=== PATIENT | female | born 1990 | race Caucasian/White ===

== ENCOUNTER 2017-11-13 06:51 | Inpatient (IN) | payer OTHER, SELFPAY ==
[2017-11-13] MEDS: NIFEdipine 10 MG CAPSULE PO ×4 (07:53→09:17)
[2017-11-13] MEDS: MAGNESIUM SULFATE 4 GM/100 ML PIGGYBACK IV (10:38)
--- NOTE | 2017-11-13 10:40 | P.HPOB_ITS ---
OB HPI History of Present Illness Chief complaint: EVALUATION OF LABOR Narrative: Moraima Heredia is a 26 year old female who presents at 34 2/ 7 weeks gestation, having regular PAINFUL contractions. At the time of presentation at 7 o'clock, patient had been dion every 2-3 minutes, her cervix was closed. She was intact at that time. The nifedipine protocol was started. Unfortunately, patient's contractions did not melissa, and patients cervix was rechecked in she had dilated to a ample 1 cm. was otherwise remarkable for a blood type of BA positive, antibody negative, rubella immune, negative glucose tolerance test , a hepatitis-C negative, HIV negative, HSV I positive, HSV 2 negative. Normal quad screen. The early first ultrasound done at 8 weeks in the office. otherwise unremarkable Evaluation Evaluation Variability: Moderate (11-25) monitor accelerations: Present monitor decelerations: Absent Contraction Frequency (minutes): 3 Uterine Contraction Intensity: Strong/Firm Category of Tracing: II station: -2 PFSH Surgical History H/O section (Resolved) Meds Home Medications Medication Instructions Recorded Confirmed Type ondansetron HCl [Zofran] 4 mg PO Q6HP PRN #30 tab 06/17/17 Rx breast pump #1 each 10/14/17 Rx Review of Systems Review of Systems All systems reviewed & are unremarkable except as noted in HPI and below Exam Vital Signs (past 8 hours): GENERAL: Well-developed well-nourished woman who appears uncomfortable HEENT: Normocephalic, atraumatic, pupils equal and reactive to light and accommodation. Extraocular movements are intact. Tympanic membranes are clear without erythema. Neck supple, no lymphadenopathy. LUNG: Clear to auscultation bilaterally. No wheeze or crackles or rhonchi. No increased work in breathing. CV: Regular rate and rhythm. No murmurs rubs or gallops. ABDOMEN: SOFT NONTENDER, NO MASS PALPABLE CONTRACTIONS AFFECT: Alert and oriented X3. Conversational and appropriate. Assessment and Plan Plan: Plan: 1. Appears patient is in labor based on cervical change. I did contact the [facility] for transfer with anticipated Caesarean section. Patient was started on magnesium, given betamethasone IV, and started on clindamycin due to penicillin allergy for GBS prophylaxis. [facility] is accepted patient in transfer. 2. Laboratories were ordered. This serves as both the history and physical and discharge summary.
[2017-11-13] MEDS: BETAMETHASONE 30 MG/5 ML MDV 12 MG IM (11:05)
[2017-11-13] MEDS: MAGNESIUM SULFATE 20 GM/500 ML IV.SOLN IV (11:10)
[2017-11-13] MEDS: CLINDAMYCIN 900 MG/50 ML PIGGYBACK 50 MG IV (11:25)
[2017-11-13 11:30] VITALS: BP 107/95; PULSE 95; RESP 16; TEMP 36.1
[2017-11-13 21:24] LABS: Appearance Urine UA CLEAR; Bilirubin Urine UA NEGATIVE (NEGATIVE); Color Urine UA YELLOW; Glucose Urine UA NEGATIVE (Normal); Ketones Urine UA NEGATIVE (NEGATIVE); Leukocyte Esterase Urine UA NEGATIVE (NEGATIVE); Nitrite Urine UA Negative (Negative); Occult Blood Urine UA NEGATIVE (Negative); Protein Urine UA NEGATIVE (Negative); Urobilinogen Urine UA 0.2 E.U./dL (0.2); pH Urine UA 7.5 (4.5-8.0)
== END 2017-11-13 11:30 | disposition short-term general hospital (02) | DRG 778 ==
PROVIDERS: Specialist; Admitting Provider Family Medicine; PCP Family Medicine; Visit Provider Family Medicine
DX: O60.03 Preterm labor without delivery, third trimester (principal); Z3A.34 34 weeks gestation of pregnancy; O34.219 Maternal care for unspecified type scar from previous cesarean delivery
CPT/HCPCS: 81003; 87086; G0378; G0379; J0702; J3475

== ENCOUNTER 2017-11-16 09:47 | Outpatient (CLI) | payer OTHER, SELFPAY | END 2017-11-16 10:40 | disposition home or self-care (01) | LOC: OB 11-17 10:09 | PROVIDERS: PCP Family Medicine; Visit Provider Family Medicine | DX: O36.8130 Decreased fetal movements, third trimester, not applicable or unspecified (principal); Z3A.35 35 weeks gestation of pregnancy | CPT/HCPCS: 59025; G0378; G0379 ==

== ENCOUNTER 2017-11-17 10:17 | Observation (INO) | payer OTHER, SELFPAY ==
[2017-11-17] MEDS: NIFEdipine 10 MG CAPSULE PO ×4 (11:15→12:11)
== END 2017-11-17 12:37 | disposition home or self-care (01) ==
PROVIDERS: Admitting Provider Family Medicine; PCP Family Medicine; Visit Provider Family Medicine
DX: O60.03 Preterm labor without delivery, third trimester (principal); Z3A.34 34 weeks gestation of pregnancy
CPT/HCPCS: 59025; 59050; G0378; G0379

== ENCOUNTER → 2017-11-28 10:45 | Outpatient (CLI) | payer OTHER, SELFPAY ==
[2017-11-29 10:01] LABS: Strep Grp B PCR NEG for Grp B Strep
== END ==
PROVIDERS: PCP Family Medicine; Visit Provider Family Medicine
DX: Z36.9 Encounter for antenatal screening, unspecified (principal); Z3A.36 36 weeks gestation of pregnancy
CPT/HCPCS: 87653

== ENCOUNTER 2017-12-13 08:08 | Inpatient (IN) | payer OTHER, SELFPAY ==
[2017-12-13] MEDS: NIFEdipine 30 MG TAB ER PO (09:03)
[2017-12-13] MEDS: NIFEdipine 10 MG CAPSULE PO (09:05)
[2017-12-13] MEDS: OXYCODONE/ACETAMINOPHEN 5/325 TABLET 2 TAB PO ×2 (11:20→19:32)
--- NOTE | 2017-12-13 12:27 | PM.OBHP.1 ---
OB HPI History of Present Illness Chief complaint: observation of labor Narrative: Moraima Heredia is a 27 year old female who presented at 38 and 4/7 weeks gestation with regular painful contractions, with history of previous section. Attempt was made to decrease contractions without success, and it was determined the best course of action would be to proceed with section. Patient had contractions starting at 34 weeks, and was maintained on nifedipine until the present. Maternal blood type A positive, antibody negative, serology nonreactive, hepatitis B negative, HIV negative, gonorrhea and Chlamydia negative, HSV 1 positive, group B strep negative. [facility] Surgical History H/O section (Resolved) Comment: Patient is , 1 previous child. No history of tobacco, marijuana, or alcohol use during . Meds Home Medications Medication Instructions Recorded Confirmed Type ondansetron HCl [Zofran] 4 mg PO Q6HP PRN #30 tab 06/17/17 Rx breast pump #1 each 10/14/17 Rx nifedipine ER 30 mg 30 mg PO BID #60 tab 11/17/17 Rx tablet,extended release nifedipine 10 mg capsule 10 mg PO TID PRN #30 cap 11/20/17 Rx Review of Systems Review of Systems All systems reviewed & are unremarkable except as noted in HPI and below Exam Vital Signs (past 8 hours): GENERAL: Well-developed well-nourished woman who appears very uncomfortable HEENT: Normocephalic, atraumatic, pupils equal and reactive to light and accommodation. Extraocular movements are intact. LUNG: Clear to auscultation bilaterally. No wheeze or crackles or rhonchi. No increased work in breathing. CV: Regular rate and rhythm. No murmurs rubs or gallops. ABDOMEN: SOFT, APPROPRIATELY TENDER, AFFECT: Alert and oriented X3. Conversational and appropriate. STERILE VAGINAL EXAM: 1/50%/-2 heart rate: Category 2 Contractions: Q 2-5 minutes Assessment and Plan Plan: Plan: Term with history of previous section. Will proceed with section at this time.
--- NOTE | 2017-12-13 12:33 | P.HPOB_ITS ---
OB HPI History of Present Illness Chief complaint: observation of labor Narrative: Moraima Heredia is a 27 year old female who presented at 38 and 4/ 7 weeks gestation with regular painful contractions, with history of previous section. Attempt was made to decrease contractions without success, and it was determined the best course of action would be to proceed with section. Patient had contractions starting at 34 weeks, and was maintained on nifedipine until the present. Maternal blood type A positive, antibody negative, serology nonreactive, hepatitis B negative, HIV negative, gonorrhea and Chlamydia negative, HSV 1 positive, group B strep negative. [facility] Surgical History H/O section (Resolved) Comment: Patient is , 1 previous child. No history of tobacco, marijuana , or alcohol use during . Meds Home Medications Medication Instructions Recorded Confirmed Type ondansetron HCl [Zofran] 4 mg PO Q6HP PRN #30 tab 06/17/17 Rx breast pump #1 each 10/14/17 Rx nifedipine ER 30 mg 30 mg PO BID #60 tab 11/17/17 Rx tablet,extended release nifedipine 10 mg capsule 10 mg PO TID PRN #30 cap 11/20/17 Rx Review of Systems Review of Systems All systems reviewed & are unremarkable except as noted in HPI and below Exam Vital Signs (past 8 hours): GENERAL: Well-developed well-nourished woman who appears very uncomfortable HEENT: Normocephalic, atraumatic, pupils equal and reactive to light and accommodation. Extraocular movements are intact. LUNG: Clear to auscultation bilaterally. No wheeze or crackles or rhonchi. No increased work in breathing. CV: Regular rate and rhythm. No murmurs rubs or gallops. ABDOMEN: SOFT, APPROPRIATELY TENDER, AFFECT: Alert and oriented X3. Conversational and appropriate. STERILE VAGINAL EXAM: 1/50%/-2 heart rate: Category 2 Contractions: Q 2-5 minutes Assessment and Plan Plan: Plan: Term with history of previous section. Will proceed with section at this time.
--- NOTE | 2017-12-13 12:33 | PM.OP.1 ---
Operative Date/Time/Diagnoses - Date of procedure: 12/13/17 Time of procedure: 13:00 Pre-op diagnosis: Term intrauterine /repeat section Post-op diagnosis: same Procedure & Clinicians Procedure: Repeat lower transverse section Same procedure as scheduled: Yes Indications: Repeat lower transverse section Anesthesia Type: Spinal Operative Notes Closure Type: primary Specimen(s): none sent Implants & Drains: Conrad catheter Procedure in detail: Patient was placed in the dorsal supine position up on the operating table and anesthetized, draped and prepped in the usual fashion. Spinal anesthesia. Once adequate anesthesia, incision site was marked. Incision was made and the subcutaneous tissue and incised to the fascia. Fascia was incised with a sharp knife transversely in each direction widened by blunt finger dissection. Pyramidalis muscles were incised in the midline and divided by blunt finger dissection. The peritoneum was picked up and incised and widened by blunt finger dissection. The peritoneum over the lower uterine segment was incised. There was minnimal fasicia however, bladder was then taken down and the bladder blade replaced. A transverse scoring incision was made across the lower uterine segment. Perforating incision was made centrally and this was widened upon finger dissection. Live was then delivered, cord was clamped and cut, and handed over to nursing. Attention was then turned to the uterus. Bladder blade was reinserted and uterus was grasped with Allis clamps x4. Uterus was closed in a 2 layer fashion with 0 Vicryl. No bleeding was observed. Omentum was then set back in place the parietal peritoneum grasped and closed in a running 2 0 chromic suture. Taking 1-0 Vicryl suture, and the fascia was closed with 2 continuous Vicryl sutures. Subcutaneous tissue was copiously irrigated and closed in 2 layers, 1st with interrupted 0-3 of suture and then with a running horizontal mattress for 0 Vicryl. Wound was further approximated with Steri-Strips. At the end of the procedure the patient tolerated the procedure well, the urine was clear and patient was taken to the recovery room in satisfactory condition. EBL 500 ml Fluids 1200 ml crystalloid Complications: none Condition: stable
[2017-12-13 12:36] LABS: Add Manual Diff / Slide Review NO; Basophils Percent Auto 0.6 % (0-2); Eosinophils Percent Auto 1.1 % (2-4); Hematocrit 34.2 % (36-46); Hemoglobin 11.9 g/dL (12.0-16.0); Lymphocytes Percent Auto 19.9 % (25-40); Mean Corpuscular HGB Conc 34.7 % (30-36); Mean Corpuscular Volume 86.5 fL (80-100); Monocytes Percent Auto 6.5 % (3-14); Neutrophils Absolute Auto 9800 /uL (3000-5900); Neutrophils Percent Auto 71.9 % (50-75); Platelet Count 206 X10^3/uL (150-400); Red Blood Cell Count 3.96 X10^6/uL (4.0-5.2); Red Cell Distribution Width 13.5 % (11.6-14.8); White Blood Cell Count 13.7 X10^3/uL (4.5-11.0)
[2017-12-13 15:45] LABS: Hematocrit 30.9 % (36-46); Hemoglobin 10.5 g/dL (12.0-16.0)
[2017-12-13] MEDS: DEXTROSE 5%-LACTATED RINGERS 1,000 ML 100 ML IV ×2 (16:21→22:49)
[2017-12-13 18:59] VITALS: BP 105/66; PULSE 77; RESP 16; TEMP 36.6; O2SAT 97
[2017-12-13 19:32] VITALS: TEMP 36.6
[2017-12-13] MEDS: ONDANSETRON 4 MG/2 ML INJ IV (19:33)
[2017-12-13 20:38] VITALS: TEMP 36.4
[2017-12-13] MEDS: KETOROLAC 30 MG/ML VIAL IV (20:38)
[2017-12-14 00:28] VITALS: TEMP 36.4
[2017-12-14] MEDS: OXYCODONE/ACETAMINOPHEN 5/325 TABLET 2 TAB PO ×6 (00:28→23:32)
[2017-12-14] MEDS: KETOROLAC 30 MG/ML VIAL IV ×2 (02:43→09:25)
[2017-12-14 05:15] VITALS: TEMP 36.4
[2017-12-14] MEDS: DOCUSATE 250 MG CAPSULE PO (09:24)
[2017-12-14] MEDS: PRENATAL VIT,CALC/IRON/FOLIC 1 TABLET 1 TAB PO (09:24)
--- NOTE | 2017-12-14 10:50 | P.PNOB_ITS ---
Subjective - OB Interval history: Postoperative day 1. Status post repeat lower transverse section. Patient does seem to be doing well. Hemoglobin was 10.5. Laboratory was ordered later in the afternoon. Mother reports that she does have some nipple pain bilaterally with feeding, and we will continue to work with her at this point. Patient has ambulated. The catheter is removed.. Pain well managed. Lochia appropriate, patient describes as heavy menses. Exam Vital Signs (past 8 hours): GENERAL: Well-developed well-nourished woman in no acute distress. HEENT: Normocephalic, atraumatic, pupils equal and reactive to light and accommodation. Extraocular movements are intact. LUNG: Clear to auscultation bilaterally. No wheeze or crackles or rhonchi. No increased work in breathing. CV: Regular rate and rhythm. No murmurs rubs or gallops. ABDOMEN: SOFT appropriately tender. Wound is clean dry and intact. Dressing remains in place. AFFECT: Alert and oriented X3. Conversational and appropriate. - 12/14/17 05:15 Temperature 97.5 F L Oxygen Delivery Method Room Air Objective Labs Result Diagrams: 12/13/17 15:05 Labs: Laboratory Results - last 24 hr 12/13/17 12/13/17 12/13/17 12:05 12:05 15:05 WBC 13.7 H RBC 3.96 L Hgb 11.9 L 10.5 L Hct 34.2 L 30.9 L MCV 86.5 MCH 30.0 MCHC 34.7 RDW 13.5 Plt Count 206 Neut % (Auto) 71.9 Lymph % (Auto) 19.9 L [place] % (Auto) 6.5 Eos % (Auto) 1.1 L Baso % (Auto) 0.6 Neut # (Auto) 9800 H Blood Type A Positive Antibody Screen Negative Assessment & Plan Time Spent With Patient day 1., patient seems to be doing well. Will continue to work with breast feeding. IV out when patient voids again. Continue pain management routine care. Total time spent is greater than 50% in coordination of care (as documented) at patient's floor/unit and/or counseling patient: less than 15 minutes
[2017-12-14] MEDS: IBUPROFEN 600 MG TABLET PO ×2 (17:17→23:33)
[2017-12-14 23:32] VITALS: TEMP 36.5
[2017-12-15 03:57] VITALS: TEMP 36.4
[2017-12-15] MEDS: OXYCODONE/ACETAMINOPHEN 5/325 TABLET 2 TAB PO ×3 (03:57→12:07)
[2017-12-15] MEDS: IBUPROFEN 600 MG TABLET PO (07:37)
[2017-12-15] MEDS: DOCUSATE 250 MG CAPSULE PO (07:38)
[2017-12-15] MEDS: PRENATAL VIT,CALC/IRON/FOLIC 1 TABLET 1 TAB PO (07:38)
[2017-12-15 09:50] VITALS: BP 117/72; PULSE 82; RESP 14; TEMP 36.4
--- NOTE | 2017-12-15 17:44 | P.DS_ITS ---
Discharge Providers Date of admission: 12/13/17 08:08 Primary care physician: Tammie Silver MD Consults: 12/13/17 14:38 Consult to Rehabilitation Services Counselor Routine Comment: Discharge provider: Tammie Silver MD Summary Discharge Diagnosis (1) H/O section: Status: Resolved Problem Details: Patient is a 27-year-old who came in for repeat section with regular painful contractions. Patient subsequently delivered a healthy term female weighing 6 lb and 14 oz. Postoperatively the patient did well. Minimal lochia. She did have her Conrad catheter removed and was ambulating on hospital day 2. Patient did have some difficulty with breast feeding and will have close follow-up. Vital signs remained stable. Patient was felt safe to discharge to home. Will follow up in 1 week. Time Spent with Patient Total time spent providing and/or coordinating discharge services: Objective Labs Result Diagrams: 12/13/17 15:05 Discharge Plan Discharge Plan Patient Disposition: Home, Self-Care Discharge Med Rec/Prescriptions Prescriptions: New oxycodone-acetaminophen 5-325 mg Tablet 2 tab PO Q4HR PRN (Reason: Pain, Severe (7-10)) Qty: 30 RF: 0 ibuprofen 600 mg Tablet 600 mg PO Q6HR PRN (Reason: As Needed For Fever/Mild Pain) Qty: 30 RF: 0 docusate sodium 250 mg Capsule 250 mg PO DAILY Qty: 30 RF: 0 [id number] [Prenatabs Rx] 29 mg iron- 1 mg Tablet 1 tab PO DAILY Qty: 30 RF: 0 Continue breast pump device .ROUTE .MEDSUPPLY Qty: 1 RF: 0 Follow up/Referrals: Tammie Silver MD [Primary Care Provider] - 1 Week (December 16, [place], a the Clinic 2pm December 22, Friday, with Dr Silver at 3pm) Wound Care Dressing: Do not remove dressing Visit Report/Discharge Packet Instructions: DI for Visit Report Forms: Stroke Signs & Symptoms Discharge Data Primary Care Provider: Tammie Silver Attending Provider: Oswald Horn Admit Date/Time: 12/13/17 08:08 Discharges patient from system. Discharge Date/Time: 12/15/17 14:00
== END 2017-12-15 14:00 | disposition home or self-care (01) | DRG 766 ==
PROVIDERS: PCP Family Medicine
DX: O75.82 Onset (spontaneous) of labor after 37 completed weeks of gestation but before 39 completed weeks gestation, with delivery by (planned) cesarean section (principal); O34.219 Maternal care for unspecified type scar from previous cesarean delivery; Z3A.38 38 weeks gestation of pregnancy; Z37.0 Single live birth
CPT/HCPCS: 36415; 59050; 59510; 85014; 85018; 85025; 86850; 86900; 86901; G0379; J0690; J1885; J2250; J2274; J2405; J2590; J3010; J7121

== ENCOUNTER → 2017-12-26 15:04 | Outpatient (CLI) | payer OTHER, SELFPAY | PROVIDERS: PCP Family Medicine; Visit Provider Family Medicine | DX: R30.0 Dysuria (principal); T81.4XXA Infection following a procedure, initial encounter | CPT/HCPCS: 87070; 87075; 87077; 87086; 87147; 87186; 87205 ==

== ENCOUNTER 2018-01-17 11:54 | Emergency (ER) | payer OTHER, SELFPAY ==
[2018-01-17 12:01] VITALS: BP 98/65; PULSE 75; RESP 14; TEMP 36.3; O2SAT 99; BMI 26.9
--- NOTE | 2018-01-17 12:27 | DI.US.S_ITS ---
PROCEDURE: US ABDOMEN COMPLETE INDICATIONS: PAIN TECHNIQUE: Real-time scanning was performed of the abdominal and retroperitoneal organs, with image documentation. COMPARISON: None. FINDINGS: Liver: Liver is normal in size and homogeneous in echotexture. Gallbladder: There are numerous small mobile gallstones. No gallbladder wall thickening or pericholecystic fluid. The sonographic Doss's sign was positive. Biliary ducts: Intrahepatic bile ducts are non-dilated. Extrahepatic bile duct caliber measures 8.2 mm. Normal is 6-7 mm or less in diameter, or 10 mm or less post-cholecystectomy. Pancreas: Visualized portions of the pancreas are sonographically normal. Spleen: Spleen is normal in size and homogeneous in echotexture. Kidneys: Kidneys are normal in size. Right kidney measures 13.1 cm long; left kidney measures 12.5 cm long. Kidneys demonstrate echogenic medulla bilaterally. No hydronephrosis or nephrolithiasis. No solid masses. Two smal simple cysts are noted in the right kidney measuring 1.0 and 1.1 cm. Aorta: Visualized aorta is normal in caliber at less than 3 cm. Iliacs: Proximal common iliac arteries are normal in caliber at less than 2.5 cm. IVC: Intrahepatic inferior vena cava is patent. Miscellaneous: No free abdominal fluid. IMPRESSION: 1. Cholelithiasis. There is a positive sonographic Doss sign but no gallbladder wall thickening or pericholecystic fluid collection. Recommend clinical correlation for early acute cholecystitis. 2. The common bile duct is dilated measuring 8.2 mm. Please correlate with serum bilirubin. 3. 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 No hydronephrosis. 4. Two small simple cysts in the right kidney. Dictated by: Hariret Dos Santos M.D. on 01/17/2018 at 14:21 Approved by: Harriet Dos Santos M.D. on 01/17/2018 at 14:26
--- NOTE | 2018-01-17 12:30 | ED.ABDPAIN ---
HPI - Abdominal Pain <VALERIA Delgado - Last Filed: 01/17/18 23:05> General Chief Complaint: Abdominal Pain Stated Complaint: PRESSURE UNDER BREASTBONE Time Seen by Provider: 01/17/18 12:14 Source: patient Mode of arrival: ambulatory Limitations: no limitations History of Present Illness HPI narrative: 27-year-old female here for complaint of pain to bilateral upper abdomen that started early this morning. She denies any trauma to the area. She denies any strenuous activity. She was seen at [facility] ER this morning and had CT and labs completed and was negative. They instructed her to follow up with her primary care provider. She returns to the ER because she has continued pain. She also reports having a couple episodes of vomiting. She has had 3 bowel movements today she states was soft however is not diarrhea she denies any fevers or chills. She denies any urinary symptoms. The pain wraps to back. She denies any stressors or relievers of the pain. MD complaint: abdominal pain Related Data Previous Rx's Medication Instructions Recorded hydrocodone-acetaminophen [Dumont] 1 tab PO Q4-6H PRN #15 tab 01/17/18 ondansetron 4 mg PO Q6-8H PRN #10 tab 01/17/18 Allergies Allergy/AdvReac Type Severity Reaction Status Date / Time amoxicillin Allergy Severe Rash Verified 01/17/18 12:15 Review of Systems <VALERIA Delgado - Last Filed: 01/17/18 23:05> Constitutional Denies chills, Denies fever(s), Denies lethargy and Denies weakness Eyes Denies change in vision, Denies eye discharge, Denies irritation and Denies loss of vision ENT Ears, Nose, Mouth, and Throat: Denies change in voice, Denies neck pain and Denies sore throat Cardiovascular Denies chest pain, Denies irregular heart rhythm, Denies lightheadedness, Denies palpitations, Denies dyspnea, Denies dyspnea on exertion and Denies orthopnea Respiratory Denies cough, Denies dyspnea, Denies dyspnea on exertion and Denies wheezing Gastrointestinal Gastrointestinal: Reports abdominal pain and Reports vomiting Genitourinary Denies hematuria, Denies flank pain, Denies urinary incontinence and Denies urinary urgency Musculoskeletal Denies neck pain Integumentary/Breasts Denies pruritus, Denies erythema, Denies rash and Denies wounds Neurologic Denies confusion, Denies loss of vision and Denies weakness Psychiatric Denies anxiety, Denies confusion, Denies depression, Denies homicidal ideation and Denies suicidal ideation Endocrine Denies palpitations Hematologic/Lymphatic Denies easy bruising Allergic/Immunologic Denies wheezing Exam <VALERIA Delgado - Last Filed: 01/17/18 23:05> Initial Vital Signs Initial Vital Signs: Vital Signs Temperature 97.4 F L 01/17/18 12:01 Pulse Rate 75 01/17/18 12:01 Respiratory Rate 14 01/17/18 12:01 Blood Pressure 98/65 01/17/18 12:01 Pulse Oximetry 99 01/17/18 12:01 Const General: cooperative and well developed Nutritional Appearance: well nourished Orientation: alert, awake, oriented x3 and not confused HENMT Mouth: oral mucosae normal and moist mucous membranes Eyes Conjunctivae: conjunctivae normal Sclera: sclerae normal Pupils: PERRL EOM: EOM intact bilaterally Resp Effort & Inspection: normal respiratory effort, able to speak in complete sentences, no respiratory distress and no use of accessory muscles Auscultation: clear to auscultation bilaterally, no rales, no rhonchi and no wheezes Cardio Rate: regular rate Rhythm: regular rhythm Heart Sounds: no click, no gallops, no murmurs and no rubs GI Inspection: non-distended Palpation: soft, no hepatosplenomegaly, No guarding, No hepatomegaly, No hernia, No mass, No pulsatile mass, No splenomegaly and tender (Tenderness on palpation to bilateral upper abdomen) Auscultation: normal bowel sounds General: No CVA tenderness Skin General: no rashes or lesions noted, No jaundice and No petechiae Neuro General: alert, oriented x3, gait normal and no focal motor deficits Speech: speech normal <Chucky Padgett MD - Last Filed: 01/19/18 08:48> Initial Vital Signs Initial Vital Signs: Vital Signs Temperature 97.4 F L 01/17/18 12:01 Pulse Rate 75 01/17/18 12:01 Respiratory Rate 14 01/17/18 12:01 Blood Pressure 98/65 01/17/18 12:01 Pulse Oximetry 99 01/17/18 12:01 Course <VALERIA Delgado - Last Filed: 01/17/18 23:05> Orders Ordered: ED Orders 01/17/18 12:27 US abdomen complete Stat Vital Signs - 8 hr 01/17/18 12:01 Temperature 97.4 F L Pulse Rate 75 Respiratory Rate 14 Blood Pressure 98/65 Pulse Oximetry 99 <Chucky Padgett MD - Last Filed: 01/19/18 08:48> Orders Ordered: ED Orders 01/17/18 12:27 US abdomen complete Stat Vital Signs - 8 hr 01/17/18 12:01 Temperature 97.4 F L Pulse Rate 75 Respiratory Rate 14 Blood Pressure 98/65 Pulse Oximetry 99 MDM - Abdominal Pain <VALERIA Delgado - Last Filed: 01/17/18 23:05> Imaging Data US - abdomen: Radiologist's impression: Patient: Moraima Heredia MR#: [id number] : 1990 Acct:[id number] Age/Sex: 27 / F Date of Service: 01/17/18 Loc: ED Accession Number: [id number] Procedure: US abdomen complete Ordering Provider: Yamil Galeana PROCEDURE: US ABDOMEN COMPLETE INDICATIONS: PAIN TECHNIQUE: Real-time scanning was performed of the abdominal and retroperitoneal organs, with image documentation. COMPARISON: None. FINDINGS: Liver: Liver is normal in size and homogeneous in echotexture. Gallbladder: There are numerous small mobile gallstones. No gallbladder wall thickening or pericholecystic fluid. The sonographic Doss's sign was positive. Biliary ducts: Intrahepatic bile ducts are non-dilated. Extrahepatic bile duct caliber measures 8.2 mm. Normal is 6-7 mm or less in diameter, or 10 mm or less post-cholecystectomy. Pancreas: Visualized portions of the pancreas are sonographically normal. Spleen: Spleen is normal in size and homogeneous in echotexture. Kidneys: Kidneys are normal in size. Right kidney measures 13.1 cm long; left kidney measures 12.5 cm long. Kidneys demonstrate echogenic medulla bilaterally. No hydronephrosis or nephrolithiasis. No solid masses. Two smal simple cysts are noted in the right kidney measuring 1.0 and 1.1 cm. Aorta: Visualized aorta is normal in caliber at less than 3 cm. Iliacs: Proximal common iliac arteries are normal in caliber at less than 2.5 cm. IVC: Intrahepatic inferior vena cava is patent. Miscellaneous: No free abdominal fluid. IMPRESSION: 1. Cholelithiasis. There is a positive sonographic Doss sign but no gallbladder wall thickening or pericholecystic fluid collection. Recommend clinical correlation for early acute cholecystitis. 2. The common bile duct is dilated measuring 8.2 mm. Please correlate with serum bilirubin. 3. 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 No hydronephrosis. 4. Two small simple cysts in the right kidney. Dictated by: Harriet Dos Santos M.D. on 01/17/2018 at 14:21 Approved by: Harriet Dos Santos M.D. on 01/17/2018 at 14:26 MDM Narrative Medical decision making narrative: Laboratory results and CT from [facility] were obtained and were unremarkable. Obtained abdominal ultrasound here at which shows cholelithiasis but not any signs of cholecystitis. Common bile duct was 8.2 mm with positive echogenic Doss sign. Sinus symptoms possible starting cholecystitis. Differential of abdominal wall pain. Discussed case with Dr. Sky phipps whose office will follow up with patient in the next few days. Patient to call the office Friday morning to schedule follow-up appointment. She is treated with Dumont for breakthrough pain not covered by Tylenol. She is also treated with Dumont for any nausea. She is instructed to limit fatty food intake to see if it helps her symptoms. For any worsening symptoms return to the emergency room. Discharge Plan Departure Patient Disposition: Home, Self-Care Clinical Impression: Abdominal pain Discharge Date/Time: 01/17/18 15:29 Interventions: ED Discharge Assessment Last Done: 01/17/18 15:28 Instructions: DI for Abdominal Pain-Adult Activity Restrictions/Additional Instructions: Received laboratory results and CT results from [facility] and they were unremarkable. Ultrasound of the abdomen shows that you do have gallbladder stones however no specific signs of gallbladder attack at this time. It is possible that you bite be in early stages have having cholecystitis. Discussed case with surgery who will follow up with you in the next few days call the office Friday morning to schedule follow-up appointment. Dumont is provided for pain and not covered by Tylenol use as directed no driving while on the Dumont. Zofran is prescribed for nausea use as directed. Limit fatty food intake to see if it helps symptoms. For any worsening symptoms return to the emergency room. Prescriptions: New hydrocodone-acetaminophen [Dumont] 5-325 mg tablet 1 tab PO Q4-6H PRN (Reason: pain) Qty: 15 RF: 0 ondansetron 4 mg tablet,disintegrating 4 mg PO Q6-8H PRN (Reason: nausea and vomiting) Qty: 10 RF: 0 Referrals: Tammie Silver MD [Primary Care Provider] - Nany Swanson MD [Physician] - <Chucky Padgett MD - Last Filed: 01/19/18 08:48> Sign Out Provider Sign Out Attestation: The PA/VACUUM SYSTEM TESTER functioned independently for the care of this pt, I was available, but not asked to participate in care. I am unable to determine appropriateness of management without personally examining the pt.
--- NOTE | 2018-01-17 12:34 | ED_ITS ---
HPI - Abdominal Pain <VALERIA Delgado - Last Filed: 01/17/18 23:05> General Chief Complaint: Abdominal Pain Stated Complaint: PRESSURE UNDER BREASTBONE Time Seen by Provider: 01/17/18 12:14 Source: patient Mode of arrival: ambulatory Limitations: no limitations History of Present Illness HPI narrative: 27-year-old female here for complaint of pain to bilateral upper abdomen that started early this morning. She denies any trauma to the area. She denies any strenuous activity. She was seen at [facility] ER this morning and had CT and labs completed and was negative. They instructed her to follow up with her primary care provider. She returns to the ER because she has continued pain. She also reports having a couple episodes of vomiting. She has had 3 bowel movements today she states was soft however is not diarrhea she denies any fevers or chills. She denies any urinary symptoms. The pain wraps to back. She denies any stressors or relievers of the pain. MD complaint: abdominal pain Related Data Previous Rx's Medication Instructions Recorded hydrocodone-acetaminophen [Oneida] 1 tab PO Q4-6H PRN #15 tab 01/17/18 ondansetron 4 mg PO Q6-8H PRN #10 tab 01/17/18 Allergies Allergy/AdvReac Type Severity Reaction Status Date / Time amoxicillin Allergy Severe Rash Verified 01/17/18 12:15 Review of Systems <VALERIA Delgado - Last Filed: 01/17/18 23:05> Constitutional Denies chills, Denies fever(s), Denies lethargy and Denies weakness Eyes Denies change in vision, Denies eye discharge, Denies irritation and Denies loss of vision ENT Ears, Nose, Mouth, and Throat: Denies change in voice, Denies neck pain and Denies sore throat Cardiovascular Denies chest pain, Denies irregular heart rhythm, Denies lightheadedness, Denies palpitations, Denies dyspnea, Denies dyspnea on exertion and Denies orthopnea Respiratory Denies cough, Denies dyspnea, Denies dyspnea on exertion and Denies wheezing Gastrointestinal Gastrointestinal: Reports abdominal pain and Reports vomiting Genitourinary Denies hematuria, Denies flank pain, Denies urinary incontinence and Denies urinary urgency Musculoskeletal Denies neck pain Integumentary/Breasts Denies pruritus, Denies erythema, Denies rash and Denies wounds Neurologic Denies confusion, Denies loss of vision and Denies weakness Psychiatric Denies anxiety, Denies confusion, Denies depression, Denies homicidal ideation and Denies suicidal ideation Endocrine Denies palpitations Hematologic/Lymphatic Denies easy bruising Allergic/Immunologic Denies wheezing Exam <VALERIA Delgado - Last Filed: 01/17/18 23:05> Initial Vital Signs Initial Vital Signs: Vital Signs Temperature 97.4 F L 01/17/18 12:01 Pulse Rate 75 01/17/18 12:01 Respiratory Rate 14 01/17/18 12:01 Blood Pressure 98/65 01/17/18 12:01 Pulse Oximetry 99 01/17/18 12:01 Const General: cooperative and well developed Nutritional Appearance: well nourished Orientation: alert, awake, oriented x3 and not confused HENMT Mouth: oral mucosae normal and moist mucous membranes Eyes Conjunctivae: conjunctivae normal Sclera: sclerae normal Pupils: PERRL EOM: EOM intact bilaterally Resp Effort & Inspection: normal respiratory effort, able to speak in complete sentences, no respiratory distress and no use of accessory muscles Auscultation: clear to auscultation bilaterally, no rales, no rhonchi and no wheezes Cardio Rate: regular rate Rhythm: regular rhythm Heart Sounds: no click, no gallops, no murmurs and no rubs GI Inspection: non-distended Palpation: soft, no hepatosplenomegaly, No guarding, No hepatomegaly, No hernia , No mass, No pulsatile mass, No splenomegaly and tender (Tenderness on palpation to bilateral upper abdomen) Auscultation: normal bowel sounds General: No CVA tenderness Skin General: no rashes or lesions noted, No jaundice and No petechiae Neuro General: alert, oriented x3, gait normal and no focal motor deficits Speech: speech normal <Chucky Padgett MD - Last Filed: 01/19/18 08:48> Initial Vital Signs Initial Vital Signs: Vital Signs Temperature 97.4 F L 01/17/18 12:01 Pulse Rate 75 01/17/18 12:01 Respiratory Rate 14 01/17/18 12:01 Blood Pressure 98/65 01/17/18 12:01 Pulse Oximetry 99 01/17/18 12:01 Course <VALERIA Delgado - Last Filed: 01/17/18 23:05> Orders Ordered: ED Orders 01/17/18 12:27 US abdomen complete Stat Vital Signs - 8 hr 01/17/18 12:01 Temperature 97.4 F L Pulse Rate 75 Respiratory Rate 14 Blood Pressure 98/65 Pulse Oximetry 99 <Chucky Padgett MD - Last Filed: 01/19/18 08:48> Orders Ordered: ED Orders 01/17/18 12:27 US abdomen complete Stat Vital Signs - 8 hr 01/17/18 12:01 Temperature 97.4 F L Pulse Rate 75 Respiratory Rate 14 Blood Pressure 98/65 Pulse Oximetry 99 MDM - Abdominal Pain <VALERIA Delgdao - Last Filed: 01/17/18 23:05> Imaging Data US - abdomen: Radiologist's impression: Patient: Moraima Heredia MR#: [id number] : 1990 Acct:[id number] Age/Sex: 27 / F Date of Service: 01/17/18 Loc: ED Accession Number: [id number] Procedure: US abdomen complete Ordering Provider: Yamil Galeana PROCEDURE: US ABDOMEN COMPLETE INDICATIONS: PAIN TECHNIQUE: Real-time scanning was performed of the abdominal and retroperitoneal organs, with image documentation. COMPARISON: None. FINDINGS: Liver: Liver is normal in size and homogeneous in echotexture. Gallbladder: There are numerous small mobile gallstones. No gallbladder wall thickening or pericholecystic fluid. The sonographic Doss's sign was positive. Biliary ducts: Intrahepatic bile ducts are non-dilated. Extrahepatic bile duct caliber measures 8.2 mm. Normal is 6-7 mm or less in diameter, or 10 mm or less post-cholecystectomy. Pancreas: Visualized portions of the pancreas are sonographically normal. Spleen: Spleen is normal in size and homogeneous in echotexture. Kidneys: Kidneys are normal in size. Right kidney measures 13.1 cm long; left kidney measures 12.5 cm long. Kidneys demonstrate echogenic medulla bilaterally. No hydronephrosis or nephrolithiasis. No solid masses. Two smal simple cysts are noted in the right kidney measuring 1.0 and 1.1 cm. Aorta: Visualized aorta is normal in caliber at less than 3 cm. Iliacs: Proximal common iliac arteries are normal in caliber at less than 2.5 cm. IVC: Intrahepatic inferior vena cava is patent. Miscellaneous: No free abdominal fluid. IMPRESSION: 1. Cholelithiasis. There is a positive sonographic Doss sign but no gallbladder wall thickening or pericholecystic fluid collection. Recommend clinical correlation for early acute cholecystitis. 2. The common bile duct is dilated measuring 8.2 mm. Please correlate with serum bilirubin. 3. 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 No hydronephrosis. 4. Two small simple cysts in the right kidney. Dictated by: Harriet Dos Santos M.D. on 01/17/2018 at 14:21 Approved by: Harriet Dos Santos M.D. on 01/17/2018 at 14:26 MDM Narrative Medical decision making narrative: Laboratory results and CT from [facility] were obtained and were unremarkable. Obtained abdominal ultrasound here at which shows cholelithiasis but not any signs of cholecystitis. Common bile duct was 8.2 mm with positive echogenic Doss sign. Sinus symptoms possible starting cholecystitis. Differential of abdominal wall pain. Discussed case with Dr. Sky phipps whose office will follow up with patient in the next few days. Patient to call the office Friday morning to schedule follow-up appointment. She is treated with Oneida for breakthrough pain not covered by Tylenol. She is also treated with Oneida for any nausea. She is instructed to limit fatty food intake to see if it helps her symptoms. For any worsening symptoms return to the emergency room. Discharge Plan Departure Patient Disposition: Home, Self-Care Clinical Impression: Abdominal pain Discharge Date/Time: 01/17/18 15:29 Interventions: ED Discharge Assessment Last Done: 01/17/18 15:28 Instructions: DI for Abdominal Pain-Adult Activity Restrictions/Additional Instructions: Received laboratory results and CT results from [facility] and they were unremarkable. Ultrasound of the abdomen shows that you do have gallbladder stones however no specific signs of gallbladder attack at this time. It is possible that you bite be in early stages have having cholecystitis. Discussed case with surgery who will follow up with you in the next few days call the office Friday morning to schedule follow-up appointment. Oneida is provided for pain and not covered by Tylenol use as directed no driving while on the Oneida. Zofran is prescribed for nausea use as directed. Limit fatty food intake to see if it helps symptoms. For any worsening symptoms return to the emergency room. Prescriptions: New hydrocodone-acetaminophen [Oneida] 5-325 mg tablet 1 tab PO Q4-6H PRN (Reason: pain) Qty: 15 RF: 0 ondansetron 4 mg tablet,disintegrating 4 mg PO Q6-8H PRN (Reason: nausea and vomiting) Qty: 10 RF: 0 Referrals: Tammie Silver MD [Primary Care Provider] - Nany Swanson MD [Physician] - <Chucky Padgett MD - Last Filed: 01/19/18 08:48> Sign Out Provider Sign Out Attestation: The PA/REFINISHER functioned independently for the care of this pt, I was available, but not asked to participate in care. I am unable to determine appropriateness of management without personally examining the pt.
[2018-01-17 14:59] VITALS: BP 105/70; PULSE 87; RESP 14; O2SAT 99
== END 2018-01-17 15:29 | disposition home or self-care (01) ==
PROVIDERS: Emergency Provider Nurse Practitioner Family; PCP Family Medicine
DX: R10.9 Unspecified abdominal pain (principal)
CPT/HCPCS: 76700; 99282; 99283

== ENCOUNTER 2018-02-18 07:25 | Day surgery (SDC) | payer OTHER, SELFPAY ==
[2018-02-06 09:22] VITALS: BMI 26.9
[2018-02-18] VITALS (9 sets, daily range): BP systolic 100–114; BP diastolic 64–75; PULSE 89–116; RESP 11–18; TEMP 36.2–36.9; O2SAT 96–100; BMI 26.9
--- NOTE | 2018-02-18 | PATH_ITS ---
[facility] Accession Number: [id number] . 01 Material submitted: . GALLBLADDER AND CONTENTS . 02 Diagnosis: Gallbladder: Cholelithiasis with associated mild chronic cholecystitis. [facility]/02/20/2018 . 02 Electronically signed: . Buddy Thomas MD, Pathologist NPI- [id number] . 01 Gross description: . Received in formalin, labeled with the patient's name and gallbladder and contents is an 8.8 x 4.5 x 4.3 cm intact pink-blue gallbladder. The serosa is smooth with a roughened liver bed surface. Opening the specimen reveals a normal appearing wall, 0.1 cm in average thickness. The mucosa is green-brown and velvety and green-brown bile is present. Approximately 50 yellow-green crystalline gallstones are present ranging from 0.1 to 0.6 cm in greatest dimension. Transmission Superintendent sections of gallbladder neck, body, fundus and cystic duct margin are submitted in cassette A1. (CRESENCIO:[id number]) /MRV . 02 Pathologist provided ICD-10: K80.64 . 02 CPT . 330768 Performed at: 01 [facility] [address], [place], [place] [id number] MD Quinn Forde MD Phone: [phone] Performed at: 02 [facility] [address] [place], [place] [id number] MD Anmol Eli MD Phone: [phone]
--- NOTE | 2018-02-18 08:46 | PM.PREOP ---
Pre-operative Note Interval Note Pre-op Check: Yes History & Physical Reviewed by Physician Changes: No
[2018-02-18] MEDS: LACTATED RINGERS 1,000 ML 42 ML IV (08:48)
[2018-02-18] MEDS: CEFOTETAN 2 GM/50 ML PIGGYBACK IV (08:51)
--- NOTE | 2018-02-18 09:16 | SUR.OPER ---
Supine on padded OR bed, head on pillow, left arm padded and tucked at side, right arm is extended less than 90 degrees on padded arm board; legs uncrossed, safety belt at thigh, tape over blanket over lower legs .
[2018-02-18] MEDS: LIDOCAINE 1% W/EPI INJ 20 ML INJ (09:29)
[2018-02-18] MEDS: BUPIVACAINE 0.5% (PF) VIAL 30 ML INJ (09:29)
--- NOTE | 2018-02-18 09:43 | PM.OP.1 ---
Operative Date/Time/Diagnoses Date of procedure: 02/18/18 Time of procedure: 09:43 Pre-op diagnosis: Cholecystitis-chronic Post-op diagnosis: same Procedure & Clinicians Procedure: Laparoscopic cholecystectomy Same procedure as scheduled: Yes Indications: Acute on chronic cholecystitis with cholelithiasis necessitating multiple trips to the emergency room Surgeon: Nany Swanson Click Yes if Unassisted: Yes Anesthesia Type: General (Dr. Christianson) Operative Notes Findings: Distended gallbladder with significant edema and erythema posteriorly. Closure Type: primary Specimen(s): other (Gallbladder to pathology in formalin) Estimated Blood Loss (mL): 20 Procedure in detail: After obtaining informed consent, the patient was brought to the operating room and placed in the supine position on the operating table. Following successful induction of general endotracheal anesthesia, appropriate padding of all bony prominences, and placement of appropriate monitors, the abdomen was prepped and draped in a standard surgical fashion. A timeout was held per SCOAP protocol. Following infiltration with local anesthetic to create a field block, an incision was created superior to the umbilicus and carried down through the skin and subcutaneous tissue to reveal the fascia below. 2-0 Vicryl retention sutures are placed on either side of the midline and the abdomen was entered under direct vision using a 15 blade scalpel. A 10 mm blunt trocar was placed in the abdominal cavity and it was insufflated to 15 mm of Hg pressure. The patient was placed in reverse Trendelenburg position with the left side rotated toward the floor. A second 5 mm trocar was placed in the midepigastrium and 2 more in the right upper quadrant, again after infiltration with local anesthetic and under direct vision with the camera. The gallbladder was grasped in the fundus and elevated up over the liver. This revealed the cholecysto-hepatoduodenal ligament. The cystic duct and artery were carefully identified with gentle dissection. As we were able to clearly see the structures as well as the junction with the common duct; we elected not to perform a cholangiogram. 3 clips were placed proximally on the cystic duct and one distally. The duct was divided between these clips. 2 clips were placed proximally on the cystic artery and one distally. The artery was divided between these clips. The gallbladder was then liberated from its bed in the liver using Bovie cautery. It was placed in an Endoscopic bag and removed via the umbilical port. The camera was returned to the abdominal cavity and the operative site examined carefully. Hemostasis was obtained with cautery. The abdomen was irrigated copiously with warm saline solution and then aspirated free of all particulate matter and fluid. Trochars were then removed under direct vision and the abdomen desufflated by giving the patient a Valsalva maneuver. The umbilical incision was closed with interrupted Vicryl suture and Monocryl sutures were placed in the skin. The remaining skin incisions were closed with Monocryl suture. All sponge, needle, and instrument counts were correct at the conclusion of the case. The patient was allowed to awaken from anesthesia without difficulty and taken to the post anesthesia care unit in good condition. Complications: none Condition: stable Disposition: PACU Plan for aftercare: 1. Discharge to home 2. Follow-up with me in 2 weeks
[2018-02-18] MEDS: fentaNYL 100 MCG/2 ML INJ IV (10:16)
[2018-02-18] MEDS: HYDROCODONE/ACET 5/325 TABLET 1 TAB PO (10:17)
--- NOTE | 2018-02-18 10:21 | SUR.PHASEI ---
stable pacu stay, awaken pain treated with fentanyl and hydrocodone abdomen c/d/i.
--- NOTE | 2018-02-18 10:22 | SUR.PHASEI ---
dr portillo spoke to pt at bedside- instructed pt to take 325 mg of asa for 7 days. written on d/c paperwork.
--- NOTE | 2018-02-18 10:46 | SUR.PHASEII ---
Report received, pt requested to feed her infant. Towels provided, curtain closed. Call light within reach.
== END 2018-02-18 11:20 | disposition home or self-care (01) ==
PROVIDERS: PCP Family Medicine; Visit Provider Surgery
PROC: 0FT44ZZ Resection of Gallbladder, Percutaneous Endoscopic Approach (ICD-10-PCS; CPT 47562; principal; 2018-02-18 08:45)
DX: K80.12 Calculus of gallbladder with acute and chronic cholecystitis without obstruction (principal)
CPT/HCPCS: 47562; 88304; J1100; J2250; J2405; J2704; J3010

== ENCOUNTER 2018-02-22 05:12 | Emergency (ER) | payer OTHER, SELFPAY ==
[2018-02-22 05:19] VITALS: BP 104/78; PULSE 77; RESP 18; TEMP 37.1; O2SAT 100; BMI 26.0
--- NOTE | 2018-02-22 05:27 | ED.ABDPAIN ---
HPI - Abdominal Pain General Chief Complaint: Abdominal Pain Stated Complaint: LEFT SIDE PAIN VOMIT 24 HOURS Time Seen by Provider: 02/22/18 05:27 Source: patient Limitations: no limitations History of Present Illness HPI narrative: The patient is here with a left upper abdominal pain. The pain started suddenly, awakening her from sleep tonight. With this she has no nausea or vomiting. She denies fever. She has no dysuria or hematuria. She underwent laparoscopic cholecystectomy 4 days ago. She has no right upper quadrant tenderness. She has no associated back pain. She denies chest pain cough or dyspnea. She is 2 months , she is nursing. Related Data Home Medications Medication Instructions Recorded Confirmed 1 tab PO DAILY 01/26/18 02/22/18 vitamin,calcium,nnnibpnh-imvg-xdwvg acid tablet Previous Rx's Medication Instructions Recorded ondansetron 4 mg PO QID PRN #20 tab MDD 4 02/18/18 oxycodone-acetaminophen [Percocet] 1 tab PO Q4-6H PRN #30 tab 02/18/18 Allergies Allergy/AdvReac Type Severity Reaction Status Date / Time amoxicillin Allergy Severe Rash Verified 02/22/18 05:22 Review of Systems Review of Systems All systems reviewed & are unremarkable except as noted in HPI and below Constitutional Denies chills, Denies fever(s), Denies lethargy and Denies weakness ENT Ears, Nose, Mouth, and Throat: Denies sore throat and Denies throat swelling Cardiovascular Denies chest pain, Denies irregular heart rhythm, Denies lightheadedness, Denies palpitations, Denies dyspnea, Denies dyspnea on exertion and Denies orthopnea Respiratory Denies cough, Denies dyspnea, Denies dyspnea on exertion, Denies wheezing and Reports other (No hematuria.) Gastrointestinal Gastrointestinal: Reports abdominal pain (Left mid abdomen.), Denies change in bowel habits, Denies diarrhea, Denies nausea and Denies vomiting Genitourinary Denies hematuria and Denies dysuria Musculoskeletal Denies back pain Integumentary/Breasts Denies pruritus, Denies erythema, Denies rash and Denies wounds Neurologic Denies weakness Endocrine Denies palpitations Allergic/Immunologic Denies throat swelling and Denies wheezing PFSH Surgical History H/O section (Resolved) Hx laparoscopic cholecystectomy (Acute) Social History Smoking Status: Never smoker Exam Initial Vital Signs Initial Vital Signs: Vital Signs Temperature 98.7 F 02/22/18 05:19 Pulse Rate 77 02/22/18 05:19 Respiratory Rate 18 02/22/18 05:19 Blood Pressure 104/78 02/22/18 05:19 Pulse Oximetry 100 02/22/18 05:19 Const General: cooperative, comfortable and well developed Nutritional Appearance: well nourished Orientation: alert, awake, oriented x3 and not confused HENMS Head: normocephalic and atraumatic Ears: TM's normal bilaterally Nose: external nose normal Mouth: oral mucosae normal and moist mucous membranes Throat: posterior oropharynx normal and tonsils normal Eyes Conjunctivae: conjunctivae normal Neck Neck: No lymphadenopathy and No JVD Resp Effort & Inspection: normal respiratory effort, able to speak in complete sentences, no respiratory distress and no use of accessory muscles Auscultation: clear to auscultation bilaterally, no rales, no rhonchi and no wheezes Cardio Rate: regular rate Rhythm: regular rhythm Heart Sounds: no click, no gallops, no murmurs and no rubs Pulses: normal peripheral pulses GI Inspection: non-distended Palpation: soft, no hepatosplenomegaly, No guarding, No pulsatile mass and tender (Left mid abdominal tenderness without guarding or rebound.) Auscultation: normal bowel sounds General: No CVA tenderness Back/Spine/Pelvis Back: normal to inspection and No back tenderness Skin General: no rashes or lesions noted Neuro General: alert, oriented x3, gait normal and no focal motor deficits Speech: speech normal Extrem General: no pedal edema and no calf tenderness Psych Appearance: well kempt Mental Status: mental status grossly normal Attitude: cooperative Thought Content: normal and suicidality Judgment: judgment good Course Orders Ordered: ED Orders 02/22/18 05:30 Complete Blood Count AUTO DIFF Stat Comprehensive Metabolic Panel Stat Lipase Stat 02/22/18 05:45 Urine Culture Stat Urine Microscopic Stat Sodium Chloride (Normal Saline 0.9%) 1,000 mls @ 250 mls/hr IV CONT RHIANNON Last Infusion: 02/22/18 05:53 Dose: 999 mls/hr Admin: 02/22/18 05:43 Dose: 250 mls/hr Discontinued Medications Ketorolac Tromethamine (Toradol) 30 mg IV NOW ONE Stop: 02/22/18 05:34 Last Admin: 02/22/18 05:44 Dose: 30 mg Vital Signs - 8 hr 02/22/18 05:19 Temperature 98.7 F Pulse Rate 77 Respiratory Rate 18 Blood Pressure 104/78 Pulse Oximetry 100 MDM - Abdominal Pain Lab Data Result diagrams: 02/22/18 05:30 02/22/18 05:30 Lab Results 02/22/18 02/22/18 02/22/18 Range/Units 05:30 05:30 05:45 WBC 10.0 (4.5-11.0) X10^3/uL RBC 4.59 (4.0-5.2) X10^6/uL Hgb 13.2 (12.0-16.0) g/dL Hct 39.1 (36-46) % MCV 85.2 (80-100) fL MCH 28.7 (26-34) PG MCHC 33.7 (30-36) % RDW 12.9 (11.6-14.8) % Plt Count 197 (150-400) X10^3/uL Neut % (Auto) 77.6 H (50-75) % Lymph % (Auto) 13.8 L (25-40) % Sanborn % (Auto) 7.7 (3-14) % Eos % (Auto) 0.6 L (2-4) % Baso % (Auto) 0.3 (0-2) % Neut # (Auto) 7800 H (4104-8656) /uL Sodium 146 H (137-145) mmol/L Potassium 3.7 (3.4-5.1) mmol/L Chloride 104 (98-107) mmol/L Carbon Dioxide 31 (22-32) mmol/L BUN 18 H (7-17) mg/dL Creatinine 0.70 (0.52-1.04) mg/dL Estimated GFR > 60.0 (>60) mL/min BUN/Creatinine Ratio 25.7 H (6-22) Glucose 106 H (70-100) mg/dL Calcium 9.4 (8.4-10.2) mg/dL Total Bilirubin 0.4 (0.2-1.3) mg/dL AST 122 H (14-36) IU/L ALT 183 H (9-52) IU/L Alkaline Phosphatase 121 (38-126) U/L Total Protein 7.1 (6.3-8.2) g/dL Albumin 4.3 (3.5-5.0) g/dL Globulin 2.8 (1.7-4.1) g/dL Albumin/Globulin Ratio 1.5 (1.0-2.8) Lipase 64 (23-300) U/L Urine RBC 10-30/hpf H (0-5/HPF) Urine WBC 1-5/hpf (0-5/HPF) Ur Squamous Epith Cells 0-1 /hpf Urine Bacteria Many (>30) H (None) Ur Culture Indicated? Specimen cultured Micro UA Comment Not Reportable Point of care testing: Point of Care Testing Test Results Negative Urine Dip Bedside Urine Glucose Negative Bedside Urine Bilirubin - Negative Bedside Urine Ketone - Negative Urine Specific Seffner 1.015 Bedside Urine Occult Blood ++ Bedside Urine pH 6.0 Bedside Urine Protein - Negative Bedside Urine Urobilinogen - Negative Bedside Urine Nitrite + Positive Bedside Urine Leukocytes - Negative Esterase Imaging Data CT scan - abdomen: Radiologist's impression: Bilateral small renal calculi. Dilated left collecting system but no ureteral stone. Findings are consistent with a recently passed left kidney stone. MDM Narrative Medical decision making narrative: The patient is pain free following IV fluids and Toradol. CT is consistent with a recently passed stone, she still has small bilateral renal stones. She feels well and is ready for discharge. She has both Percocet and nausea meds at home if necessary. Discharge Plan Departure Patient Disposition: Home Clinical Impression: Kidney stone on left side Instructions: DI for Kidney Stones Activity Restrictions/Additional Instructions: Drink plenty of water. Stay well hydrated. Advil 3 tablets every 6 hours as needed for pain. Percocet as necessary added pain control. Return here as needed. Prescriptions: No Action prenat.vits,kaitlin,thc-hkyt-pcrnr tablet 1 tab PO DAILY RF: 0 oxycodone-acetaminophen [Percocet] 5-325 mg tablet 1 tab PO Q4-6H PRN (Reason: pain) Qty: 30 RF: 0 ondansetron 4 mg tablet,disintegrating 4 mg PO QID MDD 4 PRN (Reason: nausea and vomiting) Qty: 20 RF: 0
[2018-02-22 05:42] LABS: Add Manual Diff / Slide Review NO; Basophils Percent Auto 0.3 % (0-2); Eosinophils Percent Auto 0.6 % (2-4); Hematocrit 39.1 % (36-46); Hemoglobin 13.2 g/dL (12.0-16.0); Lymphocytes Percent Auto 13.8 % (25-40); Mean Corpuscular HGB Conc 33.7 % (30-36); Mean Corpuscular Hemoglobin 28.7 PG (26-34); Mean Corpuscular Volume 85.2 fL (80-100); Monocytes Percent Auto 7.7 % (3-14); Neutrophils Absolute Auto 7800 /uL (3000-5900); Neutrophils Percent Auto 77.6 % (50-75); Platelet Count 197 X10^3/uL (150-400); Red Blood Cell Count 4.59 X10^6/uL (4.0-5.2); Red Cell Distribution Width 12.9 % (11.6-14.8)
[2018-02-22] MEDS: SODIUM CHLORIDE 0.9% 1,000 ML 250 ML IV (05:43)
[2018-02-22] MEDS: KETOROLAC 60 MG/2 ML VIAL 30 MG IV (05:44)
[2018-02-22 05:50] LABS: Alanine Aminotransferase 183 IU/L (9-52); Albumin 4.3 g/dL (3.5-5.0); Albumin Globulin Ratio 1.5 (1.0-2.8); Alkaline Phosphatase 121 U/L (38-126); Aspartate Aminotransferase 122 IU/L (14-36); BUN Creatinine Ratio 25.7 (6-22); Bilirubin Total 0.4 mg/dL (0.2-1.3); Blood Urea Nitrogen 18 mg/dL (7-17); Calcium 9.4 mg/dL (8.4-10.2); Carbon Dioxide 31 mmol/L (22-32); Chloride 104 mmol/L (98-107); Estimated Glomerular Filt Rate > 60.0 mL/min (>60); Globulin 2.8 g/dL (1.7-4.1); Glucose 106 mg/dL (70-100); HEMOLYSIS < 15 (0-50); Lipase 64 U/L (23-300); Potassium 3.7 mmol/L (3.4-5.1); Sodium 146 mmol/L (137-145); Total Protein 7.1 g/dL (6.3-8.2)
[2018-02-22 05:53] LABS: RBC Urine 10-30/HPF (0-5/HPF); Squamous Epithelial Cell Urine 0-1 /HPF; WBC Urine 1-5/HPF (0-5/HPF)
[2018-02-22 05:54] LABS: Bacteria Urine Many (>30); Culture Indicated Urine Specimen Cultured
--- NOTE | 2018-02-22 05:54 | PC.NURSE ---
pt labs show dehydration, provider notified, provider ok'd saline bolus at 999/hr
--- NOTE | 2018-02-22 06:16 | DI.CT.S_ITS ---
PROCEDURE: CT KIDNEY URETER BLADDER (KUB) INDICATIONS: Left flank pain. Hematuria. Recent cholecystectomy. TECHNIQUE: Noncontrast 5 mm thick sections acquired from the diaphragms to the symphysis. 5 mm thick coronal and sagittal reformats were then performed. For radiation dose reduction, the following was used: automated exposure control, adjustment of mA and/or kV according to patient size. COMPARISON: None. FINDINGS: Image quality: Excellent. Lung bases: Lung bases are clear. Heart size is normal. Urinary system: Both kidneys are normal in size. There several bilateral nonobstructive kidney stones and mild medullary calcinosis. No hydronephrosis or perinephric fat stranding on the right. There is mild hydronephrosis on the left, and along the course of the left ureter no urinary tract stone is found.. Both ureters appear non-dilated throughout their expected courses. Bladder wall thickness is normal; no calcified bladder stones. Other solid organs: Liver is normal in size. Gallbladder has been resected. Pancreas is normal in contours. Spleen is normal in size. No adrenal nodules. Peritoneum and bowel: Unenhanced bowel loops demonstrate normal wall thickness and caliber. No free fluid or air. Nodes and vessels: No retroperitoneal or mesenteric adenopathy by size criteria. Aorta and inferior vena cava are normal in caliber. Abdominal wall: No ventral hernias. Pelvis: No free pelvic fluid. No inguinal hernias or adenopathy. Bones: No suspicious bony lesions. No vertebral body compression fractures. IMPRESSION: Several small bilateral nonobstructive renal collecting system calculi measuring approximately 1-3 mm in maximal dimension and there is also mild bilateral medullary calcinosis. Mild hydronephrosis on the left is a nonspecific finding, and is not associated with a ureteral stone. This may indicate a normal anatomic variant for the patient, but also could indicate presence of a recently passed urinary tract stone. Note: These findings are concordant with the preliminary interpretation. Dictated by: Ge Coe M.D. on 02/22/2018 at 8:04 Approved by: Ge Coe M.D. on 02/22/2018 at 8:08
[2018-02-22 06:52] VITALS: BP 101/59; PULSE 81; RESP 14; O2SAT 100
--- NOTE | 2018-02-22 15:53 | P.PN_ITS ---
Subjective Date Patient Seen: 02/22/18 Time Patient Seen: 15:48 Interval history: Patient contacted me via telephone through the office answering service this afternoon. She had called earlier this morning at approximately 4:30 a.m. complaining of persistent nausea and vomiting following laparoscopic cholecystectomy on February 18, 2018. Instructed her at that time to present to the emergency department. She was seen this morning at [facility] ER by Dr. Hall in discharged home with a diagnosis of bilateral nephrolithiasis with evidence of recent past left ureteral stone. Urine culture is pending. Patient called to state that she now has a fever of 102.8? but no further nausea or vomiting. Pain is actually minimal at this time. She is concerned about her fever after taking 1 or 2 doses of ibuprofen without relief within the last 1-2 hours. She continues to take Percocet as needed as prescribed following her surgery, but she has not used this recently today. Exam Vital Signs (past 8 hours): Oxygen Delivery Method Room Air Narrative Exam Narrative: Obviously no examination is performed as the entire encounter was over the telephone Objective Labs Result Diagrams: 02/22/18 05:30 02/22/18 05:30 Labs: Laboratory Results - last 24 hr 02/22/18 02/22/18 02/22/18 05:30 05:30 05:45 WBC 10.0 RBC 4.59 Hgb 13.2 Hct 39.1 MCV 85.2 MCH 28.7 MCHC 33.7 RDW 12.9 Plt Count 197 Neut % (Auto) 77.6 H Lymph % (Auto) 13.8 L Storey % (Auto) 7.7 Eos % (Auto) 0.6 L Baso % (Auto) 0.3 Neut # (Auto) 7800 H Sodium 146 H Potassium 3.7 Chloride 104 Carbon Dioxide 31 BUN 18 H Creatinine 0.70 Estimated GFR > 60.0 BUN/Creatinine Ratio 25.7 H Glucose 106 H Calcium 9.4 Total Bilirubin 0.4 AST 122 H ALT 183 H Alkaline Phosphatase 121 Total Protein 7.1 Albumin 4.3 Globulin 2.8 Albumin/Globulin Ratio 1.5 Lipase 64 Urine RBC 10-30/hpf H Urine WBC 1-5/hpf Ur Squamous Epith Cells 0-1 /hpf Urine Bacteria Many (>30) H Ur Culture Indicated? Specimen cultured Micro UA Comment Not Reportable I have personally reviewed her CT scan of the abdomen and pelvis done through the emergency department this morning. Findings are as above and consistent with bilateral nephrolithiasis. No evidence of any issues related to her cholecystectomy. Assessment & Plan Post-op Postoperative Postoperative plan narrative: I instructed the patient to alternate Tylenol and Advil every few hours to control her fever. A prescription for Bactrim DS total of 10 tablets 1 orally twice daily until gone was called into her pharmacy at [facility] in [place], [place]. We discussed the use of Bactrim during nursing of her 2-month-old . Although there will be some drug level in the breast milk studies indicate that nursing while on Bactrim for an otherwise healthy term infant is not contraindicated. She voiced understanding. She will follow up with Dr. Sky west as scheduled on March 05, 2018, but I clearly instructed her to call or return sooner if she has unrelenting fever, recurrent nausea, recurrent vomiting, or progressive pain. We will follow up on the pending urine culture results as well. All questions were otherwise answered to her satisfaction, and she voiced understanding. She was agreeable to the plan.
== END 2018-02-22 07:04 | disposition home or self-care (01) ==
PROVIDERS: Emergency Provider Emergency Medicine; PCP Family Medicine
DX: N20.0 Calculus of kidney (principal)
CPT/HCPCS: 36591; 74176; 80053; 81003; 81015; 81025; 83690; 85025; 87077; 87086; 87186; 96361; 96374; 99283; 99284; J1885

== ENCOUNTER 2018-02-23 09:56 | Emergency (ER) | payer OTHER, SELFPAY ==
[2018-02-23 10:06] VITALS: BP 103/62; PULSE 103; RESP 14; TEMP 37.1; O2SAT 98
--- NOTE | 2018-02-23 10:15 | PC.NURSE ---
Started on Bactrim last night for + UTI (cultured in ED 02/22 early am). Took 1 Bactrim at home last night. Continued fever and generalized body aches. Denies focal pain. + nausea / vomited x 1 this am. Appears well, moist mucus membranes, pink / warm/ dry.
[2018-02-23 10:18] VITALS: BP 91/58; PULSE 100; RESP 20; O2SAT 98
--- NOTE | 2018-02-23 10:19 | ED.FEVER ---
HPI - Fever General Chief Complaint: Fever Stated Complaint: Fever Time Seen by Provider: 02/23/18 10:10 Source: patient Mode of arrival: ambulatory Limitations: no limitations History of Present Illness HPI Narrative: 27-year-old female status post cholecystectomy earlier this week. Was seen here in the emergency department day prior to this visit was diagnosed with renal stone. Later that evening she received a call back from her operative surgeon who started her on Bactrim. She took her 1st dose of Bactrim last evening. Not taken it this morning. Did not have a fever yesterday but developed 1 today. Was able to hold down her antibiotics. Came here to the emergency department for evaluation. Related Data Home Medications Medication Instructions Recorded Confirmed 1 tab PO DAILY 01/26/18 02/23/18 vitamin,calcium,flnemnxc-jbtp-pvjtz acid tablet sulfamethoxazole-trimethoprim 1 tab PO BID 02/23/18 02/23/18 [Bactrim DS] Previous Rx's Medication Instructions Recorded ondansetron 4 mg PO QID PRN #20 tab MDD 4 02/18/18 oxycodone-acetaminophen [Percocet] 1 tab PO Q4-6H PRN #30 tab 02/18/18 Allergies Allergy/AdvReac Type Severity Reaction Status Date / Time amoxicillin Allergy Severe Rash Verified 02/23/18 10:09 Review of Systems Constitutional Reports fatigue and Reports fever(s) Cardiovascular Denies chest pain Respiratory Denies cough Gastrointestinal Gastrointestinal: Denies abdominal pain, Denies nausea and Denies vomiting Genitourinary Reports dysuria Musculoskeletal Denies myalgias and Denies arthralgias Integumentary/Breasts Denies lesions and Denies rash Endocrine Reports fatigue Hematologic/Lymphatic Denies easy bleeding and Denies easy bruising ON LICENSE OF [facility] Medical History Healthy adult (Acute) Surgical History H/O section (Resolved) Hx laparoscopic cholecystectomy (Acute) Social History Smoking Status: Never smoker Exam Initial Vital Signs Initial Vital Signs: Vital Signs Temperature 98.7 F 02/23/18 10:06 Pulse Rate 103 H 02/23/18 10:06 Respiratory Rate 14 02/23/18 10:06 Blood Pressure 103/62 02/23/18 10:06 Pulse Oximetry 98 02/23/18 10:06 Const General: cooperative, healthy appearing, comfortable, well developed, well groomed and No acute distress Orientation: alert, awake and oriented x3 HENMT Head: normal to inspection and normocephalic Resp Effort & Inspection: normal respiratory effort Auscultation: clear to auscultation bilaterally Cardio Rate: regular rate Rhythm: regular rhythm Pulses: radial pulses present GI Other: Healing surgical scars Back/Spine/Pelvis Back: No CVA tenderness Skin Other: healing surgical scars Neuro General: alert, awake and oriented x3 Extrem General: normal to inspection and capillary refill normal Psych Appearance: grossly normal and well kempt Course Orders Ordered: Discontinued Medications Sodium Chloride (Normal Saline 0.9%) 1,000 mls @ 1,000 mls/hr IV BOLUS ONE Stop: 02/23/18 11:19 Last Infusion: 02/23/18 11:50 Dose: 0 mls/hr Admin: 02/23/18 10:32 Dose: 1,000 mls/hr Ketorolac Tromethamine (Toradol) 15 mg IV NOW ONE Stop: 02/23/18 10:37 Last Admin: 02/23/18 10:38 Dose: 15 mg Ondansetron HCl (Zofran) 4 mg IV NOW ONE Stop: 02/23/18 10:37 Last Admin: 02/23/18 10:38 Dose: 4 mg Trimethoprim/Sulfamethoxazole (Bactrim Ds) 1 tab PO NOW ONE Stop: 02/23/18 10:57 Last Admin: 02/23/18 11:03 Dose: 1 tab Vital Signs - 8 hr 02/23/18 10:06 02/23/18 10:18 Temperature 98.7 F Pulse Rate 103 H 100 H Respiratory Rate 14 20 Blood Pressure 103/62 Blood Pressure [Left Arm] 91/58 L Pulse Oximetry 98 98 MDM - Fever Lab Data Attestation: I reviewed the patient's lab results. Result diagrams: 02/23/18 10:27 02/23/18 10:27 Lab Results 02/23/18 02/23/18 02/23/18 Range/Units 10:27 10:27 10:27 WBC 15.5 H D (4.5-11.0) X10^3/uL RBC 4.16 (4.0-5.2) X10^6/uL Hgb 11.7 L (12.0-16.0) g/dL Hct 34.9 L (36-46) % MCV 83.8 (80-100) fL MCH 28.2 (26-34) PG MCHC 33.6 (30-36) % RDW 13.1 (11.6-14.8) % Plt Count 180 (150-400) X10^3/uL Neut % (Auto) 81.0 H (50-75) % Lymph % (Auto) 7.8 L (25-40) % Martin % (Auto) 10.9 (3-14) % Eos % (Auto) 0.1 L (2-4) % Baso % (Auto) 0.2 (0-2) % Neut # (Auto) 39138 H (6379-5994) /uL Sodium 138 (137-145) mmol/L Potassium 3.0 L (3.4-5.1) mmol/L Chloride 103 (98-107) mmol/L Carbon Dioxide 25 (22-32) mmol/L BUN 11 (7-17) mg/dL Creatinine 0.70 (0.52-1.04) mg/dL Estimated GFR > 60.0 (>60) mL/min BUN/Creatinine Ratio 15.7 (6-22) Glucose 105 H (70-100) mg/dL Lactate (0.7-2.1) mmol/L Calcium 8.7 (8.4-10.2) mg/dL Procalcitonin 0.71 H (<0.5) ng/mL 02/23/18 Range/Units 10:27 WBC (4.5-11.0) X10^3/uL RBC (4.0-5.2) X10^6/uL Hgb (12.0-16.0) g/dL Hct (36-46) % MCV (80-100) fL MCH (26-34) PG MCHC (30-36) % RDW (11.6-14.8) % Plt Count (150-400) X10^3/uL Neut % (Auto) (50-75) % Lymph % (Auto) (25-40) % Martin % (Auto) (3-14) % Eos % (Auto) (2-4) % Baso % (Auto) (0-2) % Neut # (Auto) (4393-0039) /uL Sodium (137-145) mmol/L Potassium (3.4-5.1) mmol/L Chloride (98-107) mmol/L Carbon Dioxide (22-32) mmol/L BUN (7-17) mg/dL Creatinine (0.52-1.04) mg/dL Estimated GFR (>60) mL/min BUN/Creatinine Ratio (6-22) Glucose (70-100) mg/dL Lactate 0.7 (0.7-2.1) mmol/L Calcium (8.4-10.2) mg/dL Procalcitonin (<0.5) ng/mL MDM Narrative Medical decision making narrative: patient does have bacteria grown from her urine culture that was drawn yesterday. Is on Bactrim. Was given her morning dose of Bactrim here during this visit. She is holding this medication down. Does have leukocytosis. I feel that her exam today is not consistent with a postoperative infection however secondary to the urinary tract infection. She was given return precautions. Will hold on further workup for now. She expressed understanding and agreement with plan Discharge Plan Departure Patient Disposition: Home Clinical Impression: Urinary tract infection, Fever Discharge Date/Time: 02/23/18 12:16 Interventions: ED Discharge Assessment Last Done: 02/23/18 12:15 Instructions: DI for Urinary Tract Infection (UTI) Activity Restrictions/Additional Instructions: Recommend that you continue to increase your fluid intake. Keep all of your scheduled postoperative medical appointments. You were given your morning dose of antibiotics here in the emergency department. At your next dose should be this evening. You can take Tylenol/acetaminophen and/or Motrin/ibuprofen for any fevers. Return to the emergency department for any new symptoms, worsening symptoms, inability to take her antibiotics, abdominal pain, or any other concerning symptoms. Prescriptions: No Action prenat.vits,kaitlin,bax-kfgv-nqzbt tablet 1 tab PO DAILY RF: 0 oxycodone-acetaminophen [Percocet] 5-325 mg tablet 1 tab PO Q4-6H PRN (Reason: pain) Qty: 30 RF: 0 ondansetron 4 mg tablet,disintegrating 4 mg PO QID MDD 4 PRN (Reason: nausea and vomiting) Qty: 20 RF: 0 sulfamethoxazole-trimethoprim [Bactrim DS] 800-160 mg Tablet 1 tab PO BID RF: 0
[2018-02-23] MEDS: SODIUM CHLORIDE 0.9% 1,000 ML 1000 ML IV (10:32)
[2018-02-23 10:33] VITALS: BP 98/58; PULSE 100; RESP 18; O2SAT 98
[2018-02-23 10:38] LABS: Add Manual Diff / Slide Review NO; Basophils Percent Auto 0.2 % (0-2); Eosinophils Percent Auto 0.1 % (2-4); Hematocrit 34.9 % (36-46); Hemoglobin 11.7 g/dL (12.0-16.0); Lymphocytes Percent Auto 7.8 % (25-40); Mean Corpuscular HGB Conc 33.6 % (30-36); Mean Corpuscular Hemoglobin 28.2 PG (26-34); Mean Corpuscular Volume 83.8 fL (80-100); Monocytes Percent Auto 10.9 % (3-14); Neutrophils Absolute Auto 12500 /uL (3000-5900); Platelet Count 180 X10^3/uL (150-400); Red Blood Cell Count 4.16 X10^6/uL (4.0-5.2); Red Cell Distribution Width 13.1 % (11.6-14.8)
[2018-02-23] MEDS: ONDANSETRON 4 MG/2 ML INJ IV (10:38)
[2018-02-23] MEDS: KETOROLAC 60 MG/2 ML VIAL 15 MG IV (10:38)
[2018-02-23 10:47] LABS: BUN Creatinine Ratio 15.7 (6-22); Blood Urea Nitrogen 11 mg/dL (7-17); Calcium 8.7 mg/dL (8.4-10.2); Carbon Dioxide 25 mmol/L (22-32); Chloride 103 mmol/L (98-107); Estimated Glomerular Filt Rate > 60.0 mL/min (>60); Glucose 105 mg/dL (70-100); HEMOLYSIS < 15 (0-50); Sodium 138 mmol/L (137-145)
[2018-02-23 10:51] LABS: Lactate (Lactic Acid) 0.7 mmol/L (0.7-2.1)
[2018-02-23 11:03] VITALS: BP 91/47; PULSE 100; RESP 14; O2SAT 100
[2018-02-23] MEDS: SULFA/TRIMETH 800/160 (DS) TABLET 1 TAB PO (11:03)
[2018-02-23 11:04] LABS: White Blood Cell Count 15.5 X10^3/uL (4.5-11.0)
[2018-02-23 11:05] LABS: Procalcitonin 0.71 ng/mL (<0.5)
[2018-02-23 12:10] VITALS: BP 98/60; PULSE 88; RESP 14; O2SAT 100
--- NOTE | 2018-02-24 10:52 | ED_ITS ---
HPI - Fever General Chief Complaint: Fever Stated Complaint: Fever Time Seen by Provider: 02/23/18 10:10 Source: patient Mode of arrival: ambulatory Limitations: no limitations History of Present Illness HPI Narrative: 27-year-old female status post cholecystectomy earlier this week. Was seen here in the emergency department day prior to this visit was diagnosed with renal stone. Later that evening she received a call back from her operative surgeon who started her on Bactrim. She took her 1st dose of Bactrim last evening. Not taken it this morning. Did not have a fever yesterday but developed 1 today. Was able to hold down her antibiotics. Came here to the emergency department for evaluation. Related Data Home Medications Medication Instructions Recorded Confirmed 1 tab PO DAILY 01/26/18 02/23/18 vitamin,calcium,sqidjrfe-heud-dsygf acid tablet sulfamethoxazole-trimethoprim 1 tab PO BID 02/23/18 02/23/18 [Bactrim DS] Previous Rx's Medication Instructions Recorded ondansetron 4 mg PO QID PRN #20 tab MDD 4 02/18/18 oxycodone-acetaminophen [Percocet] 1 tab PO Q4-6H PRN #30 tab 02/18/18 Allergies Allergy/AdvReac Type Severity Reaction Status Date / Time amoxicillin Allergy Severe Rash Verified 02/23/18 10:09 Review of Systems Constitutional Reports fatigue and Reports fever(s) Cardiovascular Denies chest pain Respiratory Denies cough Gastrointestinal Gastrointestinal: Denies abdominal pain, Denies nausea and Denies vomiting Genitourinary Reports dysuria Musculoskeletal Denies myalgias and Denies arthralgias Integumentary/Breasts Denies lesions and Denies rash Endocrine Reports fatigue Hematologic/Lymphatic Denies easy bleeding and Denies easy bruising [facility] Medical History Healthy adult (Acute) Surgical History H/O section (Resolved) Hx laparoscopic cholecystectomy (Acute) Social History Smoking Status: Never smoker Exam Initial Vital Signs Initial Vital Signs: Vital Signs Temperature 98.7 F 02/23/18 10:06 Pulse Rate 103 H 02/23/18 10:06 Respiratory Rate 14 02/23/18 10:06 Blood Pressure 103/62 02/23/18 10:06 Pulse Oximetry 98 02/23/18 10:06 Const General: cooperative, healthy appearing, comfortable, well developed, well groomed and No acute distress Orientation: alert, awake and oriented x3 HENMT Head: normal to inspection and normocephalic Resp Effort & Inspection: normal respiratory effort Auscultation: clear to auscultation bilaterally Cardio Rate: regular rate Rhythm: regular rhythm Pulses: radial pulses present GI Other: Healing surgical scars Back/Spine/Pelvis Back: No CVA tenderness Skin Other: healing surgical scars Neuro General: alert, awake and oriented x3 Extrem General: normal to inspection and capillary refill normal Psych Appearance: grossly normal and well kempt Course Orders Ordered: Discontinued Medications Sodium Chloride (Normal Saline 0.9%) 1,000 mls @ 1,000 mls/hr IV BOLUS ONE Stop: 02/23/18 11:19 Last Infusion: 02/23/18 11:50 Dose: 0 mls/hr Admin: 02/23/18 10:32 Dose: 1,000 mls/hr Ketorolac Tromethamine (Toradol) 15 mg IV NOW ONE Stop: 02/23/18 10:37 Last Admin: 02/23/18 10:38 Dose: 15 mg Ondansetron HCl (Zofran) 4 mg IV NOW ONE Stop: 02/23/18 10:37 Last Admin: 02/23/18 10:38 Dose: 4 mg Trimethoprim/Sulfamethoxazole (Bactrim Ds) 1 tab PO NOW ONE Stop: 02/23/18 10:57 Last Admin: 02/23/18 11:03 Dose: 1 tab Vital Signs - 8 hr 02/23/18 10:06 02/23/18 10:18 Temperature 98.7 F Pulse Rate 103 H 100 H Respiratory Rate 14 20 Blood Pressure 103/62 Blood Pressure [Left Arm] 91/58 L Pulse Oximetry 98 98 MDM - Fever Lab Data Attestation: I reviewed the patient's lab results. Result diagrams: 02/23/18 10:27 02/23/18 10:27 Lab Results 02/23/18 02/23/18 02/23/18 Range/Units 10:27 10:27 10:27 WBC 15.5 H D (4.5-11.0) X10^3/uL RBC 4.16 (4.0-5.2) X10^6/uL Hgb 11.7 L (12.0-16.0) g/dL Hct 34.9 L (36-46) % MCV 83.8 (80-100) fL MCH 28.2 (26-34) PG MCHC 33.6 (30-36) % RDW 13.1 (11.6-14.8) % Plt Count 180 (150-400) X10^3/uL Neut % (Auto) 81.0 H (50-75) % Lymph % (Auto) 7.8 L (25-40) % Woodruff % (Auto) 10.9 (3-14) % Eos % (Auto) 0.1 L (2-4) % Baso % (Auto) 0.2 (0-2) % Neut # (Auto) 60196 H (6707-0503) /uL Sodium 138 (137-145) mmol/L Potassium 3.0 L (3.4-5.1) mmol/L Chloride 103 (98-107) mmol/L Carbon Dioxide 25 (22-32) mmol/L BUN 11 (7-17) mg/dL Creatinine 0.70 (0.52-1.04) mg/dL Estimated GFR > 60.0 (>60) mL/min BUN/Creatinine Ratio 15.7 (6-22) Glucose 105 H (70-100) mg/dL Lactate (0.7-2.1) mmol/L Calcium 8.7 (8.4-10.2) mg/dL Procalcitonin 0.71 H (<0.5) ng/mL 02/23/18 Range/Units 10:27 WBC (4.5-11.0) X10^3/uL RBC (4.0-5.2) X10^6/uL Hgb (12.0-16.0) g/dL Hct (36-46) % MCV (80-100) fL MCH (26-34) PG MCHC (30-36) % RDW (11.6-14.8) % Plt Count (150-400) X10^3/uL Neut % (Auto) (50-75) % Lymph % (Auto) (25-40) % Woodruff % (Auto) (3-14) % Eos % (Auto) (2-4) % Baso % (Auto) (0-2) % Neut # (Auto) (6351-1064) /uL Sodium (137-145) mmol/L Potassium (3.4-5.1) mmol/L Chloride (98-107) mmol/L Carbon Dioxide (22-32) mmol/L BUN (7-17) mg/dL Creatinine (0.52-1.04) mg/dL Estimated GFR (>60) mL/min BUN/Creatinine Ratio (6-22) Glucose (70-100) mg/dL Lactate 0.7 (0.7-2.1) mmol/L Calcium (8.4-10.2) mg/dL Procalcitonin (<0.5) ng/mL MDM Narrative Medical decision making narrative: patient does have bacteria grown from her urine culture that was drawn yesterday. Is on Bactrim. Was given her morning dose of Bactrim here during this visit. She is holding this medication down. Does have leukocytosis. I feel that her exam today is not consistent with a postoperative infection however secondary to the urinary tract infection. She was given return precautions. Will hold on further workup for now. She expressed understanding and agreement with plan Discharge Plan Departure Patient Disposition: Home Clinical Impression: Urinary tract infection, Fever Discharge Date/Time: 02/23/18 12:16 Interventions: ED Discharge Assessment Last Done: 02/23/18 12:15 Instructions: DI for Urinary Tract Infection (UTI) Activity Restrictions/Additional Instructions: Recommend that you continue to increase your fluid intake. Keep all of your scheduled postoperative medical appointments. You were given your morning dose of antibiotics here in the emergency department. At your next dose should be this evening. You can take Tylenol/acetaminophen and/or Motrin/ibuprofen for any fevers. Return to the emergency department for any new symptoms, worsening symptoms, inability to take her antibiotics, abdominal pain, or any other concerning symptoms. Prescriptions: No Action prenat.vits,kaitlin,vjz-kkyi-mgwss tablet 1 tab PO DAILY RF: 0 oxycodone-acetaminophen [Percocet] 5-325 mg tablet 1 tab PO Q4-6H PRN (Reason: pain) Qty: 30 RF: 0 ondansetron 4 mg tablet,disintegrating 4 mg PO QID MDD 4 PRN (Reason: nausea and vomiting) Qty: 20 RF: 0 sulfamethoxazole-trimethoprim [Bactrim DS] 800-160 mg Tablet 1 tab PO BID RF: 0
== END 2018-02-23 12:16 | disposition home or self-care (01) ==
PROVIDERS: Emergency Provider Emergency Medicine; Family Provider Family Medicine; PCP Family Medicine
DX: N39.0 Urinary tract infection, site not specified (principal); R50.9 Fever, unspecified
CPT/HCPCS: 36415; 36591; 80048; 83605; 84145; 85025; 87040; 96361; 96374; 96375; 99283; 99284; J1885; J2405

== ENCOUNTER → 2018-03-05 13:58 | Outpatient (CLI) | payer OTHER, SELFPAY ==
[2018-03-05 14:03] LABS: Bacteria Urine None Seen; RBC Urine None Seen (0-5/HPF)
[2018-03-05 14:38] LABS: Appearance Urine UA CLEAR; Bilirubin Urine UA NEGATIVE (NEGATIVE); Color Urine UA YELLOW; Glucose Urine UA NEGATIVE (Normal); Ketones Urine UA TRACE (NEGATIVE); Leukocyte Esterase Urine UA NEGATIVE (NEGATIVE); Nitrite Urine UA Negative (Negative); Occult Blood Urine UA NEGATIVE (Negative); Protein Urine UA NEGATIVE (Negative); Urobilinogen Urine UA 0.2 E.U./dL (0.2); pH Urine UA 6.5 (4.5-8.0)
[2018-03-05 14:54] LABS: WBC Urine 5-10/HPF (0-5/HPF)
[2018-03-05 14:55] LABS: Calcium Oxalate Crystals Urine Moderate; Culture Indicated Urine Specimen Cultured
== END ==
PROVIDERS: PCP Family Medicine; Visit Provider Surgery
DX: N39.0 Urinary tract infection, site not specified (principal)
CPT/HCPCS: 81001; 87086